=== PATIENT | female | born 1960 | race Hispanic/Latino ===

== ENCOUNTER 2025-05-21 11:33 | Emergency (ER) | payer MEDICARE ==
[~2025-05-21] VITALS: Ht 167.6 cm; Wt 68.0 kg
[2025-05-21 11:56] VITALS: TEMP 98.5
[2025-05-21] MEDS ORDERED: KETOROLAC TROMETHAMINE 30 MG/ML VIAL IV STA (12:02)
[2025-05-21] MEDS ORDERED: SODIUM CHLORIDE 0.9% 1000ML 1,000 ML IV SCH (12:15)
[2025-05-21 13:15] VITALS: PULSE 88; RESP 16; O2SAT 99
== END 2025-05-21 14:05 | disposition home or self-care (01) ==
LOC: ER 11:37
DX: T83.84XA Pain due to genitourinary prosthetic devices, implants and grafts, initial encounter (principal); I10 Essential (primary) hypertension; E11.9 Type 2 diabetes mellitus without complications; E78.5 Hyperlipidemia, unspecified; Z85.43 Personal history of malignant neoplasm of ovary
CPT/HCPCS: 74176; 99283